=== PATIENT | female | born 1975 | race Caucasian/White ===

== ENCOUNTER → 2018-01-20 | Day surgery (SDC) | payer OTHER ==
--- NOTE | 2018-01-20 14:36 | OP ---
DATE OF OPERATION: 01/20/2018 PREOPERATIVE DIAGNOSIS: Abnormal right mammography. POSTOPERATIVE DIAGNOSIS: Abnormal right mammography. PROCEDURE: An attempt at stereotactic biopsy. SURGEON: Nida Kiser MD INDICATION FOR PROCEDURE: Patient had routine screening mammography that noted an area of cluster microcalcifications in the lateral, slightly posterior upper outer right breast. Recommendation was needle biopsy. The procedure was discussed, with all her questions answered. PROCEDURE IN DETAIL: Patient brought to [facility] in [place], laid prone on the lorad table. We tried several different approaches in attempt to see these calcifications. On one of the cranial views we were able to see them; however, on the stereo pair the stroke margin was not accessible to a biopsy. Therefore, despite several attempts, I discussed with the patient we were not able to biopsy this area of microcalcifications given its location/the technology. My recommendation now is a right breast wide localized excision of these calcifications for diagnosis, and she understands this. The procedure was discussed with her, and she will call my office to schedule this under local and IV sedation. NIDA KISER M.D. [id number] MTDD
== END | disposition home or self-care (01) ==
LOC: FMAMMOTONE 11:24
PROVIDERS: ATTEND Surgery
PROC: 0HBT3ZX Excision of Right Breast, Percutaneous Approach, Diagnostic (ICD-10-PCS; principal; 2018-01-20)
DX: R92.8 Other abnormal and inconclusive findings on diagnostic imaging of breast (principal); Z53.8 Procedure and treatment not carried out for other reasons
CPT/HCPCS: 19081

== ENCOUNTER 2018-03-05 07:52 | Day surgery (SDC) | payer OTHER ==
[2018-03-04 09:57] VITALS: BMI 21.4
[2018-03-05] MEDS ORDERED: LIDOCAINE HCL 1%, 10 MG/ML (20ML VIAL) ONE (11:21)
[2018-03-05] MEDS ORDERED: MIDAZOLAM HCL 2 MG/2 ML SINGLE DOSE VIAL ONE ×3 (13:21→13:33)
[2018-03-05] MEDS ORDERED: ceFAZolin SODIUM 1 GM VIAL IVPB ONE (13:23)
[2018-03-05] MEDS ORDERED: PROPOFOL 20 ML ONE (13:26)
[2018-03-05] MEDS ORDERED: LIDOCAINE HCL 1%, 10 MG/ML (20ML VIAL) INF ONE (13:34)
[2018-03-05] MEDS ORDERED: LIDOCAINE HCL/PF 2% SDV 5ML VIAL ONE (13:49)
[2018-03-05] MEDS ORDERED: ONDANSETRON 4 MG/2 ML VIAL IVPUSH PRN (14:12)
[2018-03-05] MEDS ORDERED: oxyCODONE HCL 5 MG TABLET PO PRN (14:12)
[2018-03-05] MEDS ORDERED: PROMETHAZINE HCL 25 MG/1 ML VIAL IVPB PRN (14:12)
[2018-03-05] MEDS ORDERED: LACTATED RINGERS SOLUTION 1,000 ML IV SCH (14:15)
--- NOTE | 2018-03-05 14:38 | OP ---
DATE OF OPERATION: 03/05/2018 PREOPERATIVE DIAGNOSIS: Right breast microcalcifications on mammography. POSTOPERATIVE DIAGNOSIS: Right breast microcalcifications on mammography. PROCEDURE: Right breast wire-localized excisional biopsy. SURGEON: Nida Kiser MD ANESTHESIA: Local, IV sedation. ESTIMATED BLOOD LOSS: Minimal. COMPLICATIONS: None. This is a sterile procedure. INDICATIONS FOR PROCEDURE: Patient presented with a screening mammography that noted calcifications in the upper outer right breast. I attempted to do a stereotactic needle biopsy. Was unsuccessful. Therefore, my recommendation was an excision of the area. The procedure was discussed with all the questions answered. PROCEDURE IN DETAIL: Patient was brought to [facility] in [place], taken to breast imaging where a wire was used to localize the calcifications in the upper outer right breast by from Radiology. Patient was then brought up to the operating room and after IV sedation and IV antibiotics the right breast was prepped and draped in the usual sterile fashion. The area in the outer right breast was anesthetized with 1% lidocaine without epinephrine. A curvilinear incision was made in the outer right breast and the wire was used as a guide to get down to the area of interest. This was excised en bloc and a specimen radiograph showed the wire and the calcifications to be within the specimen. This was then sent to Pathology for permanent section. Hemostasis was assured with electrocautery. The parenchyma approximated with interrupted 2-0 Vicryl. Skin approximated with interrupted 3-0 Vicryl and running 4-0 Prolene. A sterile dressing with Tegaderm 4 x 4 was applied. She tolerated the procedure well and was taken to recovery in good condition. NIDA KISER M.D. [id number]
[2018-03-05] MEDS ORDERED: ONDANSETRON 4 MG/2 ML VIAL ONE ×2 (14:43→17:16)
[2018-03-05 18:15] VITALS: BP 110/70; PULSE 78; TEMP 98
--- NOTE | 2018-03-10 09:27 | PATH ---
Surgical Pathology Report Patient Name: AGGIE SANCHES Med. Rec. #: [id number] /Age/Gender: 1975 (Age: 42) / F Account: [id number] Location: [facility] SURGICAL Taken: 03/05/2018 Received: 03/05/2018 Reported: 03/10/2018 Physicians: Nida Aguirre M.D. Specimen(s) Received RIGHT BREAST EXCISIONAL BIOPSY Clinical History Microcalcifications on mammography Final Diagnosis Breast, right, excision: Benign breast tissue with FIBROCYSTIC CHANGES INCLUDING stromal fibrosis, microcysts, apocrine metaplasia, adenosis, columnar cell changes, and associated microcalcificationS. Electronically Signed Radhika Abel M.D. Gross Description Received fresh on an [employer]uGrid labeled "right breast excisional biopsy," is a 4.3 x 3.5 x 1.1 cm unoriented portion of fibroadipose tissue with a needle localization wire present. There is no skin or nipple present. The specimen is inked blue and serially sectioned. Sectioning reveals diffuse dense, white fibrous tissue. No definitive masses are identified. The specimen is entirely and sequentially submitted in 9 cassettes. Total formalin fixation time: Approximately 6 hours 03/05/201803/05/2018
== END 2018-03-05 18:15 | disposition home or self-care (01) ==
LOC: JASU-SURG 07:52
PROVIDERS: ATTEND Surgery
PROC: 0HBT0ZX Excision of Right Breast, Open Approach, Diagnostic (ICD-10-PCS; principal; 2018-03-05 11:00)
DX: N60.11 Diffuse cystic mastopathy of right breast (principal)
CPT/HCPCS: 19281; 84703; 88307-TC; 94760